=== PATIENT | female | born 1945 | race Asian ===

== ENCOUNTER → 2019-09-30 | Outpatient (CLI) | payer MEDICARE ==
[~2019-09-30] MED LIST: GADOTERATE 2.5 MMOL/5 ML VIAL ONE
== END | disposition home or self-care (01) ==
LOC: CFH 08:36
PROVIDERS: ATTEND Family Medicine
DX: G31.9 Degenerative disease of nervous system, unspecified (principal); G93.89 Other specified disorders of brain; I10 Essential (primary) hypertension; Z90.710 Acquired absence of both cervix and uterus; Z79.899 Other long term (current) drug therapy
CPT/HCPCS: 70553; A9575